=== PATIENT | male | born 1970 | race Caucasian/White ===

== ENCOUNTER → 2021-08-24 | Outpatient (CLI) | payer OTHER ==
--- NOTE | 2021-08-24 13:16 | KCIC ---
CT for coronary artery calcium scoring, without IV contrast, 08/24/2021 1:12 PM INDICATION: Reason: MIXED HYPERLIPIDEMIA / Spl. Instructions: / History: Past smoker. Technique: Noncontrast CT images through the coronary arteries was performed . Findings: No significant noncardiac findings are identified. Visual inspection of the coronary arteries demonstrates no calcification. The computer-generated calcium scoring utilizing AJ-130 criteria are as follows: Left Main Artery: 0. Left Anterior Descending Artery: 0. Left Circumflex Artery: 0. Right Coronary Artery: 0. The total calcium score is 0. Impression: Your total calcium score is 0. No plaque is present. The chance of significant heart disease is less than 5%, and corresponds to a very low risk for a myocardial infarction. Table: 0: No plaque is present. The chance of significant heart disease is less than 5%, and corresponds to a very low risk for a myocardial infarction. 1-10: A small amount of plaque is present. The chance of significant heart disease is less than 10%, and corresponds to a low risk for a myocardial infarction. 11-100: Plaque is present. This correlates with mild heart disease and a moderate risk for a myocardi al infarction. 101-400: A moderate amount of plaque is present. This correlates with heart disease, and a moderate t o high risk for a myocardial infarction. Over 400: A large amount of plaque is present. This correlates with a greater than 90% chance of a h igh grade stenosis. The risk for myocardial infarction is high. Electronically signed by: Ajay Lowe MD (08/24/2021 1:13 PM) [id number]
== END ==
LOC: KCIC CT 12:22
PROVIDERS: ATTEND Nurse Practitioner Family
DX: I21.9 Acute myocardial infarction, unspecified (principal); I51.9 Heart disease, unspecified; E78.2 Mixed hyperlipidemia
CPT/HCPCS: 75571